=== PATIENT | female | born 1970 | race Caucasian/White ===

== ENCOUNTER 2020-09-18 13:33 | Emergency (ER) | payer OTHER, BC, SELFPAY ==
--- NOTE | ~2020-09-18 | XR_ITS ---
EXAMINATION: XR foot RT min 3V EXAM DATE: 09/18/2020 14:09 INDICATION: Dropped a box on distal foot . Attn: 1-2 toes. Initial encounter. TECHNIQUE: Right foot dorsoplantar, lateral and oblique projections obtained and reviewed. There is no prior study for comparison. FINDINGS: Right metatarsal bones unremarkable. Probable acute closed posttraumatic nondisplaced frac ture through the tuft of the right 2nd digit. There is overlying soft tissue swelling. No other suspi cious findings. Small calcaneal spurs. IMPRESSION: Probable nondisplaced right 2nd tuft fracture. Reviewed, dictated and finalized at location A.
[2020-09-18 13:48] VITALS: BP 124/75; PULSE 87; RESP 18; TEMP 37.1; O2SAT 100
--- NOTE | 2020-09-18 14:14 | ED.LOWEXIN ---
HPI - Extremity Injury (Lower) General Chief Complaint: Extremity Injury, Lower Stated Complaint: Rt foot/toe injury Time Seen by Provider: 09/18/20 14:11 Source: patient and RN notes reviewed Mode of arrival: ambulatory Limitations: no limitations History of Present Illness HPI Narrative: Patient presents today complaining of an injury to the right second toe. She dropped a case of water on her toe at work just prior to arrival. No pain at rest, but pain increases with weightbearing or walking. She took 2 ibuprofen with relief. Patient works at [email or web address]. MD complaint: foot injury Related Data Home Medications Medication Instructions Recorded Confirmed Vitamin B-12 09/18/20 bupropion HCl [Wellbutrin SR] 200 mg PO BID 09/18/20 09/18/20 fluoxetine 20 mg PO DAILY 09/18/20 09/18/20 montelukast [Singulair] 10 mg PO DAILY 09/18/20 09/18/20 montelukast [Singulair] 10 mg PO DAILY 09/18/20 09/18/20 trazodone 50 mg PO HS 09/18/20 09/18/20 Allergies Allergy/AdvReac Type Severity Reaction Status Date / Time No Known Allergies Allergy Verified 09/18/20 13:52 Review of Systems Review of Systems: Narrative: CONSTITUTIONAL: Denies body aches, fever, chills, or sweats. EYES: Denies visual changes, redness, or discharge. ENT: Denies rhinorrhea, congestion, sore throat, or otalgia. CARDIOVASCULAR: Denies chest pain, palpitations, or edema. RESPIRATORY: Denies cough or dyspnea. GASTROINTESTINAL: Denies abdominal pain, nausea, vomiting, or diarrhea. GENITOURINARY: Denies dysuria or hematuria. SKIN: Denies rash, itching, or wounds. MUSCULOSKELETAL: Denies back pain, or myalgia. + Toe injury NEUROLOGIC: Denies headache, numbness, tingling, or weakness. PSYCH: Denies depression or anxiety. [facility] Past Medical History Medical History (Updated 09/18/20 @ 14:37 by Lisa Caal, [employer], [employer]) Anxiety Comments At time of signature, I have reviewed and agree with nursing past medical, surgical, social and family history unless otherwise noted. Please see nursing chart for further information. There is no relevant family history pertinent to the presenting complaint Exam Narrative: Exam Narrative: GENERAL: Well-appearing, well-nourished, and in no acute distress. HEAD: Normocephalic, atraumatic. EYES: EOMI. No redness or drainage. Conjunctivae normal. ENT: Mucous membranes pink and moist. NECK: Normal AROM. CHEST: No respiratory distress. EXTREMITIES: Right second toe: Ecchymosis to the entire toe along the dorsum and the plantar aspect. Scant edema. Toenails not affected. Tender to palpation. Full range of motion. Distal sensation intact. Capillary refill normal. Pedal pulse normal. SKIN: Warm, dry, no rash. Capillary refill normal. Normal skin turgor. NEURO: No focal deficits. Alert and oriented x3. Gait steady. PSYCH: Normal affect. No signs of depression or anxiety. Course Vital Signs Vital signs: Vital Signs Temperature 98.7 F 09/18/20 13:48 Pulse Rate 87 09/18/20 13:48 Respiratory Rate 18 09/18/20 13:48 Blood Pressure 124/75 09/18/20 13:48 Pulse Oximetry 100 09/18/20 13:48 Temperature 98.7 F 09/18/20 13:48 Pulse Rate 87 09/18/20 13:48 Respiratory Rate 18 09/18/20 13:48 Blood Pressure 124/75 09/18/20 13:48 Pulse Oximetry 100 09/18/20 13:48 Reviewed. Pt has been instructed to follow up with her PCP regarding her elevated blood pressure today. Procedures Orthopedic Splinting/Casting Injury #1: Splinting/Casting Date: 09/18/20 Splinting/Casting Time: 14:35 Side: right Lower Extremity Injury Location: foot Lower Extremity Immobilizer: post-op shoe and gage tape Splint: prefabricated Pre-Procedure Neuro Vascular Exam: normal Post-Procedure Neuro Vascular Exam: normal MDM - Extremity Injury (Lower) Differential Diagnosis Differential diagnosis: Likely other (Toe fracture, contusion, sprain, dislocation) Im
== END 2020-09-18 14:45 | disposition home or self-care (01) ==
PROVIDERS: Emergency Provider Nurse Practitioner; PCP Internal Medicine
DX: S92.534A Nondisplaced fracture of distal phalanx of right lesser toe(s), initial encounter for closed fracture (principal); W20.8XXA Other cause of strike by thrown, projected or falling object, initial encounter; F41.9 Anxiety disorder, unspecified
CPT/HCPCS: 73630; 99214; G0463